=== PATIENT | female | born 1990 | race Caucasian/White ===

== ENCOUNTER 2023-10-29 14:45 | Emergency (ER) | payer MEDICARE, OTHER, SELFPAY ==
[2023-10-29 14:53] VITALS: BP 112/81
--- NOTE | 2023-10-29 17:12 | ED.GENMED ---
History of Present Illness
General
Chief Complaint: Head Injury
Source: patient
Exam Limitations: none
Time Seen by Provider: 10/29/23 16:11
Nursing documentation reviewed up to this point in time: agreed with
Travel History
Have you had any contact with someone who has COVID-19?: No
Do you have any symptoms of coronavirus? Fever > 100 degrees, chills, cough, shortness of breath, sore throat, loss of taste or smell, muscle aches, or headache?: No
History of Present Illness
History of Present Illness:
32-year-old female past medical history of ADHD anxiety bipolar depression presenting to the emergency department after tripping up 3 wooden stairs hitting the right side of her head losing consciousness shortly after unsure how long she was
unconscious also feeling woozy having ongoing headache took Motrin prior to arrival with slight improvement of symptoms. Ongoing photophobia and phonophobia
Past History
Past History
ED Past Medical History: Other (ADHD, Anxiety, Bipolar disorder, ODD, Alcohol Syndrome)
ED Past Surgical History: Gynecological (Hysterectomy)
Social History
Tobacco: Non-smoker
Alcohol: None
Drug: None
Personal: Single
Living: with family
Employment: Not employed
Family History
Family History: Unable to obtain
Review of Systems
Review of Systems
Allergies reviewed?: Yes
All Other Systems: ROS reviewed and negative except as documented in HPI and ROS
Phy Exam
Physical Exam
Physical Exam:
GENERAL: Alert , in no apparent distress
EYE: pupils equal and reactive
NECK: Supple, no significant adenopathy.
ENT: o/p clr, mmm.
CARDIAC: Regular rate and rhythm .
LUNGS: Clear breath sounds bilaterally, no acute respiratory distress, no wheezes/rales/rhonchi
ABDOMEN: Soft, without focal tenderness, no r/g, no cvat
NEUROLOGICAL: Alert and oriented, no focal neuro deficits 5 out of 5 upper and lower extremity strength normal sensation with palpating bilaterally normal finger-nose and [id number] no pronator drift
SKIN: Warm and dry, skin intact.
MUSCULOSKELETAL: No edema, well perfused.
PSYCH: Normal and appropriate interaction.
Course
Orders/Labs/Results
Orders:
Orders
10/29/23 16:23
CT Head W/o Iv Contrast Urgent
Comment:
Reason For Exam: fall hit head, multiple loc
Test Result ONCE
10/29/23 16:54
Beta Hcg Urine Qualitative Screen [HCG, Urine Qualitative Screen] Urgent
Date Specimen was Collected: 10/29/23
Time Specimen was Collected: 16:24
Urinalysis Reflex To Culture Urgent
Date Specimen was Collected: 10/29/23
Time Specimen was Collected: 16:24
Urine Microscopic Reflex Cult Urgent
10/29/23 16:58
Add On- LAB Urgent
Tests Added?: Urinalysis with reflex to culture
Abnormal Lab Results
10/29/23
16:54
Leukocyte Esterase Rfl Trace A
(Negative)
Vital Signs
Initial and Last Documented VS:
Initial Vital Signs
Temp Pulse Resp BP Pulse Ox
99.0 F 76 16 112/81 98
10/29/23 14:53 10/29/23 14:53 10/29/23 14:53 10/29/23 14:53 10/29/23 14:53
Last Documented Vital Signs
Temp Pulse Resp BP Pulse Ox
99.0 F 76 16 112/81 98
10/29/23 14:53 10/29/23 14:53 10/29/23 14:53 10/29/23 14:53 10/29/23 14:53
MDM/Problems Addressed
MDM/Problems Addressed:
32-year-old female presenting to the emergency department after tripping up 3 stairs to the right side of her head on a wooden step. She was able to get to a couch shortly thereafter but then believes that she passed out for a brief moment. Has
been feeling somewhat lightheaded and 'off'. Took Motrin prior to arrival with some improvement. Vital signs normal upon arrival. Normal neurologic evaluation. CT scan showing Chiari I malformation but no emergent findings. Patient with likely
mild concussion stable for outpatient management return precautions given.
*Critical Care Note
Total Time (30-74mins, 75-104mins- exclusive of procedures): Not Applicable
ED Attending Note
-
Portions of this chart may have been created with voice recognition software.� Occasional wrong word or��sound alike� substitutions may have occurred due to the inherent limitations of voice recognition software.
Discharge Plan
Departure
Patient Disposition: Home (Routine Discharge)
Date of Disposition: 10/29/23
Time of Disposition: 18:17
Patient with high blood pressure during this ER visit?: No
Condition: Good
Covid-19: Not Applicable
Discharge Problem:
Mild closed head injury
Instructions: Minor Head Injury (DC)
Prescriptions:
No Action
oxycodone-acetaminophen 5 MG/325 MG tablet
1 tab PO Q4HPRN PRN (Reason: moderate pain) Qty: 30 0RF
ibuprofen 600 MG tablet
600 mg PO Q4HPRN PRN (Reason: moderate pain/cramps) 0RF
oseltamivir 75 MG capsule
75 mg PO BID Qty: 10 0RF
azithromycin 250 MG tablet
250 mg PO DAILY Qty: 4 0RF
Referrals:
NONE,* [Family Provider] -
Stand Alone Forms: Return to Work
Activity Restrictions/Additional Instructions:
You came to the emergency department today with concerns of head injury. CT scan without emergent findings. Did show Chiari I malformation. You can follow-up as an outpatient for this. Otherwise please rest the symptoms could be consistent with
a mild concussion. Return to the emergency department for any worsening, new or concerning symptoms.
Interventions
Interventions:
*Risk Screen - Suicide Last Done: 10/29/23 16:57
*General Assessment Last Done: 10/29/23 16:57
*Neglect/Abuse Screening Last Done: 10/29/23 16:57
ED- Fall Risk Assessment Last Done: 10/29/23 16:57
*ED COVID-19 Vaccine History Last Done: 10/29/23 16:57
ED- Neurological Assessment Last Done: 10/29/23 16:57
ED-Skin Assessment Last Done: 10/29/23 16:57
Discharge Date and Time
Print Language: MAORI
[2023-10-29 17:14] LABS: HCG, Urine Qualitative Screen Negative
[2023-10-29 17:15] LABS: Urine Albumin Negative (Neg - Trace); Urine Bilirubin Negative (Negative); Urine Character Clear (Clear); Urine Color Yellow; Urine Glucose Negative (Negative); Urine Ketone Negative (Negative); Urine Leukocyte Trace (Negative); Urine Nitrite Negative (Negative); Urine Occult Blood Negative (Negative); Urine Specific Gravity 1.015 (<1.030); Urine Urobilinogen Negative (Neg - 1+)
[2023-10-29 18:02] LABS: Urine Red Blood Cell 0-2 /HPF (0-2)
[2023-10-29 18:03] LABS: Urine Squamous Cell 0-2 /LPF (Few)
[2023-10-29] MEDS: TYLENOL 650 MG PO (18:35)
[2023-10-29 18:40] VITALS: BP 113/71
== END 2023-10-29 18:45 | disposition home or self-care (01) ==
LOC: EMR 14:45
PROVIDERS: Physician Assistant; EMERGENCY PHYSICIAN Student in an Organized Health Care Education/Training Program
DX: S09.90XA Unspecified injury of head, initial encounter (principal); W19.XXXA Unspecified fall, initial encounter; F90.9 Attention-deficit hyperactivity disorder, unspecified type; F31.9 Bipolar disorder, unspecified
CPT/HCPCS: 99284; 70450; 81003; 81015; 81025